=== PATIENT | male | born 2000 | race Caucasian/White ===

== ENCOUNTER 2023-05-25 13:02 | Emergency (ER) | payer OTHER ==
[~2023-05-25] VITALS: Ht 182.9 cm; Wt 89.8 kg
[2023-05-25 13:25] VITALS: BP_SYST 124; PULSE 99; RESP 20; TEMP 98.1; O2SAT 98
[2023-05-25] MEDS ORDERED: DEXAMETHASONE SOD PHOSPHATE 10 MG/ML VIAL IM ONE (14:30)
[2023-05-25] MEDS ORDERED: KETOROLAC TROMETHAMINE 60 MG/2 ML VIAL IM ONE (14:30)
[2023-05-25] MEDS ORDERED: PENICILLIN G BENZATHINE 1.2 MMU/2 ML SYR IM ONE (14:30)
[2023-05-25] MEDS ORDERED: DOXY100C5 PO (15:27)
[2023-05-25] MEDS ORDERED: AUG875 PO (15:27)
[2023-05-25] MEDS ORDERED: DICL75TA5 PO (15:27)
[2023-05-25 15:48] VITALS: BP_SYST 124; PULSE 99; RESP 20; TEMP 98.1; O2SAT 98
== END 2023-05-25 15:50 | disposition home or self-care (01) ==
LOC: SED 13:02
DX: J03.90 Acute tonsillitis, unspecified (principal); R13.10 Dysphagia, unspecified; R50.9 Fever, unspecified; Z79.899 Other long term (current) drug therapy
CPT/HCPCS: 99284; 96372; J0561; J1100; J1885; J7030